=== PATIENT | male | born 1985 | race Two or more races ===

== ENCOUNTER 2019-04-16 07:12 | Emergency (ER) | payer SELFPAY ==
[~2019-04-16] VITALS: Ht 165.1 cm; Wt 65.3 kg
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
--- NOTE | 2019-04-16 07:32 | NUR ---
1:1 SITTER AT BEDSIDE.
--- NOTE | 2019-04-16 07:35 | NUR ---
SECURITY CALLED FOR WANDING. ALL BELONGINGS TO SAFE LOCKER.
[2019-04-16 07:54] LABS: APPEARANCE,URINE Slightly Cloudy (CLEAR); BILIRUBIN,URINE SMALL (NEGATIVE); BLOOD, URINE Negative Ery/uL (NEGATIVE); COLOR,URINE Dark (YELLOW); KETONES,URINE Trace (NEGATIVE); LEUKOCYTE ESTERASE ,URINE Negative (NEGATIVE); NITRITE, URINE Negative (NEGATIVE); PH,URINE 5.5 (5.0-8.0); PROTEIN,URINE 30 mg/dl (NEGATIVE); UGLUCOSE Negative (NEGATIVE); UROBILINOGEN,URINE 0.2 EU/dL (0.2)
[2019-04-16 08:10] LABS: BACTERIA,URINE Few /HPF (None Seen); RBC,URINE 0-2 /HPF (0-2); SQUAMOUS EPITHELIAL CELL,UR Rare /HPF (None Seen)
[2019-04-16 08:10] LABS: BASOPHILS # (AUTO) 0.2 /CMM (0.0-0.2); BASOPHILS % (AUTO) 3.1 % (0.0-2.0); EOSINOPHILS % (AUTO) 3.4 % (0.0-6.0); HEMATOCRIT 43 % (39-51); HEMOGLOBIN 14.7 g/dL (13.5-17.5); LYMPHOCYTES % (AUTO) 16.9 % (20.0-44.0); MEAN CORPUSCULAR HGB CONC 34 g/dl (31.0-36.0); MEAN CORPUSCULAR VOLUME 91 fL (80-96); MONOCYTES # (AUTO) 0.7 /CMM (0.1-1.30); MONOCYTES % (AUTO) 12.2 % (2.0-12.0); NEUTROPHILS # (AUTO) 3.7 /CMM (1.8-8.9); NEUTROPHILS % (AUTO) 64.4 % (43.0-81.0); PLATELET COUNT (AUTO) 353 /CMM (150-450); RED BLOOD CELL COUNT(AUTO) 4.72 MIL/uL (4.5-6.0); WHITE BLOOD COUNT (AUTO) 5.7 K/uL (4.3-11.0)
[2019-04-16 08:23] LABS: ALANINE AMINOTRANSFERASE 27 U/L (12-78); ALBUMIN 3.9 g/dL (3.4-5.0); ALCOHOL, BLOOD < 3 mg/dL (0-0); ALKALINE PHOSPHATASE 94 U/L (46-116); ASPARTATE AMINOTRANSFERASE 20 U/L (15-37); BILIRUBIN,DIRECT 0.1 mg/dL (0.0-0.2); BILIRUBIN,TOTAL 0.7 mg/dL (0.2-1.0); CALCIUM, SERUM 9.1 mg/dL (8.5-10.1); CARBON DIOXIDE 28 mmol/L (21-32); CHLORIDE 104 mmol/L (98-107); CREATININE 1.1 mg/dL (0.6-1.3); GLUCOSE 115 mg/dL (74-106); POTASSIUM 4.2 mmol/L (3.5-5.1); SALICYLATE 1.5 mg/dL (2.8-20.0); SODIUM SERUM 143 mmol/L (136-145); TOTAL PROTEIN, SERUM 7.5 g/dL (6.4-8.2); UREA NITROGEN, BLOOD 19 mg/dL (7-18)
[2019-04-16 08:24] LABS: ACETAMINOPHEN < 2 ug/ml (10-30)
--- NOTE | 2019-04-16 08:47 | NUR ---
YULIANA PERES CALLED FOR EVAL
--- NOTE | 2019-04-16 10:37 | NUR ---
Pt was evaluated by film sound coordinator Letha Smith and is psychiatrically cleared for discharge. [address] VENDOR met with the pt and provided him with a homeless packet which contains [facility] [phone] [place] [facility] program list, [facility] located at [address] [facility] ; [facility] [place], [address] [address] [place] ; [facility] [place], [address] [facility] ; [facility] Homeless Resource Directory which includes food stamps, transitional housing, showers and hot meals etc; Mental Health clinics such as [facility] ; [facility] ; Health clinics;[facility] and Alcohol treatment centers such as [facility], ; [facility] Substance Abuse Hotline and [facility] . Homeless waiver signed by the pt. Pt was provided with a warm meal and TAP card. No other social service needs are requested at this time. MARYLOU Magaña has been made aware of pt's discharge plan.
--- NOTE | 2019-04-16 10:38 | NUR ---
PT IS MEDICALLY AND PSYCH CLEARED. DENIES SI AT THIS TIME. HOMELESS WAIVER FORMED IS SIGNED. WAS PROVIDED W/ MEAL TRAY. RESOURCES PROVIDED. D/C IN STABLE CONDITION.
[2019-04-16 10:41] VITALS: BP 132/99
== END 2019-04-16 10:41 | disposition home or self-care (01) ==
LOC: ER 07:15
DX: R45.851 Suicidal ideations (principal); F15.10 Other stimulant abuse, uncomplicated; I10 Essential (primary) hypertension; F32.9 Major depressive disorder, single episode, unspecified
CPT/HCPCS: 36415; 80048; 80076; 80305; 80307; 80329; 81001; 85025; 99284; A6403; G0480; 81000-TC

== ENCOUNTER 2019-04-26 18:07 | Emergency (ER) | payer SELFPAY ==
[~2019-04-26] VITALS: Ht 165.1 cm; Wt 64.4 kg
--- NOTE | 2019-04-26 18:10 | NUR ---
PT BIB [facility] [place] [employer] [employer]. PT WAS TRIAGED AND TAKEN TO ER 13. PT'S BELONGINGS WERE REMOVED, LABELED, AND PLACED IN A LOCKER. PT IS CALM AND COOPERATIVE. PT STATED THAT HE WAS SI S/P USING METH. PT WAS GOING TO ATTEMPT JUMPING OFF A BRIDGE. PT DENIES SI AT THIS TIME. URINE SAMPLE WAS OBTAINED AND SENT TO LAB.
--- NOTE | 2019-04-26 18:20 | NUR ---
PT PLACED IN GOWN AND PROVIDING URINE SAMPLE. PT BELONGINGS PLACED IN LOCKER.
--- NOTE | 2019-04-26 18:30 | NUR ---
PT REC'D A SANDWICH AND GATERAIDE DRINK. PT IS TOLERATING PO WELL. MARYLU COLE CNA, IS AT THE BEDSIDE.
[2019-04-26 18:47] LABS: CALCIUM, SERUM 9.2 mg/dL (8.5-10.1); CARBON DIOXIDE 29 mmol/L (21-32); CHLORIDE 101 mmol/L (98-107); GLUCOSE 113 mg/dL (74-106); POTASSIUM 3.6 mmol/L (3.5-5.1); SODIUM SERUM 138 mmol/L (136-145); UREA NITROGEN, BLOOD 23 mg/dL (7-18)
[2019-04-26] MEDS ORDERED: OLANZAPINE 5 MG TABLET ONE (18:50)
[2019-04-26 18:54] LABS: ALANINE AMINOTRANSFERASE 31 U/L (12-78); ALBUMIN 4.3 g/dL (3.4-5.0); ALCOHOL, BLOOD < 3 mg/dL (0-0); ALKALINE PHOSPHATASE 90 U/L (46-116); ASPARTATE AMINOTRANSFERASE 25 U/L (15-37); BILIRUBIN,DIRECT 0.4 mg/dL (0.0-0.2); BILIRUBIN,TOTAL 1.9 mg/dL (0.2-1.0); TOTAL PROTEIN, SERUM 7.9 g/dL (6.4-8.2)
[2019-04-26 18:56] LABS: SALICYLATE < 2.8 mg/dL (2.8-20.0)
--- NOTE | 2019-04-26 18:59 | NUR ---
PT WAS STILL HUNGRY. PT REC'D A FOOD TRAY.
[2019-04-26] MEDS ORDERED: OLANZAPINE 5 MG TABLET PO ONE (19:00)
[2019-04-26 19:07] LABS: BILIRUBIN,URINE MODERATE (NEGATIVE); BLOOD, URINE Negative Ery/uL (NEGATIVE); COLOR,URINE Yellow (YELLOW); KETONES,URINE 15 (NEGATIVE); LEUKOCYTE ESTERASE ,URINE Negative (NEGATIVE); NITRITE, URINE Negative (NEGATIVE); PH,URINE 5.5 (5.0-8.0); PROTEIN,URINE Trace mg/dl (NEGATIVE); UGLUCOSE Negative (NEGATIVE)
[2019-04-26 19:11] LABS: BASOPHILS # (AUTO) 0.2 /CMM (0.0-0.2); BASOPHILS % (AUTO) 1.8 % (0.0-2.0); EOSINOPHILS % (AUTO) 1.1 % (0.0-6.0); HEMATOCRIT 43 % (39-51); HEMOGLOBIN 14.8 g/dL (13.5-17.5); LYMPHOCYTES # (AUTO) 1.3 /CMM (0.8-4.8); LYMPHOCYTES % (AUTO) 14.3 % (20.0-44.0); MEAN CORPUSCULAR HGB CONC 34 g/dl (31.0-36.0); MEAN CORPUSCULAR VOLUME 91 fL (80-96); MONOCYTES # (AUTO) 0.8 /CMM (0.1-1.30); MONOCYTES % (AUTO) 9.1 % (2.0-12.0); NEUTROPHILS # (AUTO) 6.4 /CMM (1.8-8.9); NEUTROPHILS % (AUTO) 73.7 % (43.0-81.0); PLATELET COUNT (AUTO) 302 /CMM (150-450); RED BLOOD CELL COUNT(AUTO) 4.76 MIL/uL (4.5-6.0); WHITE BLOOD COUNT (AUTO) 8.7 K/uL (4.3-11.0)
--- NOTE | 2019-04-26 19:14 | NUR ---
PT APPEARS TO BE RESTING COMFORTABLY.
--- NOTE | 2019-04-26 19:16 | NUR ---
SATISH, DAIRY TECHNOLOGIST IS AT THE BEDSIDE FOR BLOOD DRAW.
[2019-04-26 19:22] LABS: APPEARANCE,URINE SLIGHTLY HAZY (CLEAR); BACTERIA,URINE Rare /HPF (None Seen); CALCIUM OXALATE CRYSTALS,UR Moderate /HPF (None Seen); MUCUS,URINE Few /LPF (None Seen); RBC,URINE 0-2 /HPF (0-2); SQUAMOUS EPITHELIAL CELL,UR Few /HPF (None Seen)
--- NOTE | 2019-04-26 20:26 | NUR ---
PT APPEARS TO BE RESTING COMFORTABLY. REPEAT EKG IN PROGRESS AT THE BEDSIDE.
--- NOTE | 2019-04-26 20:35 | NUR ---
PT AMBULATED TO THE BATHROOM WITH A STEADY GAIT. SITTER IS WITH THE PT.
--- NOTE | 2019-04-26 21:26 | NUR ---
PT REC'D ANOTHER SANDWICH AND IS TOLERATING PO WELL.
--- NOTE | 2019-04-26 21:48 | NUR ---
Carlos shelley in [facility] - 04/26/19 at 2152 by [email or web address] PT TRIED TO GIVE A URINE SAMPLE, BUT DID NOT HAVE TO URINATE AT THIS TIME.
--- NOTE | 2019-04-26 21:50 | NUR ---
PT APPEARS TO BE SLEEPING SOUNDLY. VSS. SITTER IS AT THE BEDSIDE.
--- NOTE | 2019-04-26 22:15 | NUR ---
PT APPEARS TO BE SLEEPING COMFORTABLY WITH NO S/S OF PAIN OR DISTRESS.
--- NOTE | 2019-04-27 00:38 | NUR ---
PT APPEARS TO BE SLEEPING SOUNDLY WITH SITTER AT THE BEDSIDE. WILL CONTINUE TO MONITOR THE PT.
--- NOTE | 2019-04-27 01:47 | NUR ---
PT REC'D A SANDWICH AND JUICE. PT IS TOLERATING PO WELL.
--- NOTE | 2019-04-27 01:49 | NUR ---
PT DENIES SI AT THIS TIME.
--- NOTE | 2019-04-27 02:48 | NUR ---
PT APPEARS TO BE SLEEPING SOUNDLY WITH NO S/S OF PAIN OR DISTRESS. SITTER IS AT THE BEDSIDE. WILL CONTINUE TO MONITOR THE PT.
--- NOTE | 2019-04-27 05:29 | NUR ---
Patient discharged to home in stable condition. Written and verbal after care instructions given. Patient verbalizes understanding of instruction. Pt ambulated with steady gait. VSS. Pt signed homeless waiver.
[2019-04-27 05:31] VITALS: BP 112/75
== END 2019-04-27 05:31 | disposition home or self-care (01) ==
LOC: ER 18:07
DX: F15.10 Other stimulant abuse, uncomplicated (principal); F12.10 Cannabis abuse, uncomplicated; R94.5 Abnormal results of liver function studies; I10 Essential (primary) hypertension; F90.9 Attention-deficit hyperactivity disorder, unspecified type; F43.10 Post-traumatic stress disorder, unspecified
CPT/HCPCS: 36415; 80048; 80076; 80305; 80307; 80329; 81001; 84484; 85025; 93005 ×2; 99284; G0480; 81000-TC

== ENCOUNTER 2019-05-04 10:52 | Emergency (ER) | payer MEDICAID ==
[~2019-05-04] VITALS: Ht 165.1 cm; Wt 65.8 kg
--- NOTE | 2019-05-04 10:59 | NUR ---
[id number], homeless, patient took heroin this morning, 1 spray narcan given by ems. On room air, breathing evenly and unlabored. connected to the monitor and pulse ox. kept comfortable will conitnue to monitor accordingly.
[2019-05-04 11:30] VITALS: BP 145/81
--- NOTE | 2019-05-04 11:33 | NUR ---
Patient given written and verbal discharge instructions. Patient verbalizes understanding of instructions. Patient is ambulatory with steady gait. Refuses offer of alf placement. Patient given list of available shelters in surrounding area. food and tap card provided. in no distress, denies any pain or discomfort.
== END 2019-05-04 11:33 | disposition home or self-care (01) ==
LOC: ER 10:52
DX: T40.1X1A Poisoning by heroin, accidental (unintentional), initial encounter (principal); I10 Essential (primary) hypertension; Z59.0 Homelessness; Y92.89 Other specified places as the place of occurrence of the external cause

== ENCOUNTER 2019-08-02 06:31 | Emergency (ER) | payer SELFPAY ==
[~2019-08-02] VITALS: Ht 165.1 cm; Wt 63.5 kg
[2019-08-02] MEDS ORDERED: ONDANSETRON 4 MG TAB.RAPDIS PO ONE (07:00)
[2019-08-02] MEDS ORDERED: oxyCODONE/APAP (5/325 MG) 1 UDTAB TABLET PO ONE (07:00)
--- NOTE | 2019-08-02 07:00 | NUR ---
ASSESSED PT ON BED AWAKE AND AAOX4. NOT IN RESPIRATORY DISTRESS,V/S STABLE. KEPT RESTED AND COMFORTABLE. WILL CONTINUE TO MONITOR.
[2019-08-02] MEDS ORDERED: oxyCODONE/APAP (5/325 MG) 1 UDTAB TABLET ONE (07:08)
[2019-08-02] MEDS ORDERED: ONDANSETRON 4 MG TAB.RAPDIS ONE (07:08)
--- NOTE | 2019-08-02 07:56 | NUR ---
TO ER WR TO WAIT FOR DINKEY MOTOR OPERATOR
--- NOTE | 2019-08-02 08:10 | NUR ---
YULIANA DUBOSE AT WAITING FOR PT RESOURCES
--- NOTE | 2019-08-02 08:18 | NUR ---
BEAN VINER was informed by Ruben in ED stating, pt is waiting for SW in the ED waiting room. BEAN VINER met with the pt in ED waiting room. BEAN VINER introduced self and purpose of the visit. Pt is alert and oriented x 4. Pt appears disheveled and unkempt. Pt is requesting for resources and a sandwich and blanket. Pt is a heroin user. Pt last used a few days ago. Pt denies SI/HI. BEAN VINER provided pt with list of Homeless Resources Related to COVID-19 which included mental health clinics, addiction resources, food coyne, hygiene etc. Pt was provide with a sandwich and blanket. No other social service needs are requested at this time. Agronomy Professor is available for support as needed.
[2019-08-02 08:19] VITALS: BP 120/74
== END 2019-08-02 08:20 | disposition home or self-care (01) ==
LOC: ER 06:34
DX: F11.10 Opioid abuse, uncomplicated (principal); R11.2 Nausea with vomiting, unspecified; I10 Essential (primary) hypertension; F43.10 Post-traumatic stress disorder, unspecified; Z59.0 Homelessness
CPT/HCPCS: 99283; Q0162

== ENCOUNTER 2019-08-02 17:45 | Emergency (ER) | payer SELFPAY ==
[~2019-08-02] VITALS: Ht 165.1 cm; Wt 63.5 kg
[2019-08-02] MEDS ORDERED: IV NS 0.9% 1,000 ML BAG IV ONE (18:30)
[2019-08-02] MEDS ORDERED: ONDANSETRON HCL/PF 4 MG/2 ML VIAL IVP ONE (18:30)
[2019-08-02] MEDS ORDERED: ACETAMINOPHEN 325 MG TABLET PO ONE (18:30)
[2019-08-02] MEDS ORDERED: ACETAMINOPHEN ES 500 MG TABLET ONE (18:41)
[2019-08-02] MEDS ORDERED: ONDANSETRON HCL/PF 4 MG/2 ML VIAL ONE (18:41)
--- NOTE | 2019-08-02 19:25 | NUR ---
to er bed 12. aaox4. not in resp distress. ambulatory. came in for abdominal pain x today also reports nausea. reports using heroin about hours ago. md was at bedside for eval. orders received noted and carried out. iv line to the l ac 18g. medicated as ordered
--- NOTE | 2019-08-02 20:03 | NUR ---
Patient discharged to home in stable condition. Written and verbal after care instructions given. Patient verbalizes understanding of instruction.IV removed. Catheter intact and site benign. Pressure and 4x4 applied to site. No bleeding noted. Pt ambulatory with a steady gait. Pt provided with food. Pt signed homeless waiver
[2019-08-02 20:14] VITALS: BP 137/86
== END 2019-08-02 20:14 | disposition home or self-care (01) ==
LOC: ER 17:48
DX: F11.10 Opioid abuse, uncomplicated (principal); R11.0 Nausea; I10 Essential (primary) hypertension; F43.10 Post-traumatic stress disorder, unspecified; Z60.2 Problems related to living alone
CPT/HCPCS: 96374; 99283; J2405; J7030

== ENCOUNTER 2019-09-09 20:17 | Inpatient (IN) | payer MEDICAID ==
[~2019-09-09] VITALS: Ht 165.1 cm; Wt 71.7 kg
[2019-09-09] MEDS ORDERED: PIPERACILLIN /TAZOBACTAM 3.375 G in IV D5W 50 ML IV ONE (21:00)
[2019-09-09] MEDS ORDERED: VANCOMYCIN 1 GM in IV D5W 250 ML IV ONE (21:00)
[2019-09-09] MEDS ORDERED: TDAP [DIPH/PERTUSSIS/TET] 0.5 ML VIAL IM ONE ×2 (21:00→22:46)
[2019-09-09] MEDS ORDERED: IV NS 0.9% 1,000 ML BAG IV ONE (21:00)
--- NOTE | 2019-09-09 21:10 | NUR ---
BIBS FROM STREET TO ER BED 12. AAOX4. NOT IN RESP DISTRESS, BREATHING EVEN AND UNLABORED. AMBULATORY. CAME IN FOR BILAT LEG REDNESS, SWELLING, OPEN WOUNDS AND MULTIPLE ABSCESS. PT VERBALIZED THE HE STRATED TO NOTICE IT COUPLE DAYS BEFORE. PT REPORTS THAT HE IS AN IV DRUG USER AND USES HIS LEGS FOR IV ACCESS. PT IS AFEBRILE. SHAMA MARTINEZ WAS AT THE BEDSIDE FOR EVAL. ORDERS RECEIVED NOTED AND CARRIED OUT.
[2019-09-09 21:18] LABS: BASOPHILS # (AUTO) 0.1 /CMM (0.0-0.2); BASOPHILS % (AUTO) 1.3 % (0.0-2.0); HEMATOCRIT 36 % (39-51); HEMOGLOBIN 12.1 g/dL (13.5-17.5); LYMPHOCYTES # (AUTO) 0.8 /CMM (0.8-4.8); LYMPHOCYTES % (AUTO) 8.3 % (20.0-44.0); MEAN CORPUSCULAR HGB CONC 34 g/dl (31.0-36.0); MEAN CORPUSCULAR VOLUME 88 fL (80-96); MONOCYTES # (AUTO) 0.8 /CMM (0.1-1.30); MONOCYTES % (AUTO) 7.5 % (2.0-12.0); NEUTROPHILS # (AUTO) 8.3 /CMM (1.8-8.9); NEUTROPHILS % (AUTO) 81.9 % (43.0-81.0); PLATELET COUNT (AUTO) 386 /CMM (150-450); RED BLOOD CELL COUNT(AUTO) 4.04 MIL/uL (4.5-6.0); WHITE BLOOD COUNT (AUTO) 10.2 K/uL (4.3-11.0)
[2019-09-09 21:31] LABS: CALCIUM, SERUM 9.6 mg/dL (8.5-10.1); CARBON DIOXIDE 29 mmol/L (21-32); CHLORIDE 99 mmol/L (98-107); CREATININE 0.8 mg/dL (0.6-1.3); GLUCOSE 101 mg/dL (74-106); POTASSIUM 3.5 mmol/L (3.5-5.1); SODIUM SERUM 135 mmol/L (136-145); UREA NITROGEN, BLOOD 12 mg/dL (7-18)
[2019-09-09] MEDS ORDERED: PIPERACILLIN /TAZOBACTAM 3.375 G VIAL IV ONE (21:32)
[2019-09-09] MEDS ORDERED: VANCOMYCIN 1 GM VIAL ONE (21:32)
[2019-09-09 21:37] LABS: ALANINE AMINOTRANSFERASE 45 U/L (12-78); ALBUMIN 3.4 g/dL (3.4-5.0); ALKALINE PHOSPHATASE 82 U/L (46-116); ASPARTATE AMINOTRANSFERASE 34 U/L (15-37); BILIRUBIN,DIRECT 0.1 mg/dL (0.0-0.2); BILIRUBIN,TOTAL 0.3 mg/dL (0.2-1.0); TOTAL PROTEIN, SERUM 8.1 g/dL (6.4-8.2)
--- NOTE | 2019-09-09 21:45 | NUR ---
PT PROVIDED WITH FOOD AND DRINK
--- NOTE | 2019-09-09 21:45 | NUR ---
XRAY DINE AT BEDSIDE
[2019-09-09] MEDS ORDERED: LIDOCAINE 1%-EPI 1:100,000 20 ML VIAL ONE (21:57)
--- NOTE | 2019-09-09 22:02 | NUR ---
SHAMA MARTINEZ T BEDSIDE FOR I&D
--- NOTE | 2019-09-09 23:24 | NUR ---
COVID NEGATIVE PER LAB
--- NOTE | 2019-09-09 23:33 | NUR ---
BED ASSIGNMENT 208-1
--- NOTE | 2019-09-09 23:39 | NUR ---
REPORT GIVEN TO MARYLOU VASQUEZ FOR JUAN
--- NOTE | 2019-09-09 23:50 | NUR ---
pt trasnported to unit on [facility] with emt at bedside. pt is in stable condition for transport.
[2019-09-10 00:05] VITALS: BP 151/95
[2019-09-10 00:15] VITALS: BP 151/95
[2019-09-10] MEDS ORDERED: MORPHINE SULFATE INJ 2 MG/ML DISP.SYRIN IV PRN (02:00)
[2019-09-10] MEDS ORDERED: ZOLPIDEM TARTRATE 5 MG TABLET PO PRN (02:00)
[2019-09-10] MEDS ORDERED: Z GUARD REMEDY 2 OZ OINT TP PRN (02:00)
[2019-09-10] MEDS ORDERED: ONDANSETRON HCL/PF 4 MG/2 ML VIAL IVP PRN (02:00)
[2019-09-10] MEDS ORDERED: CLONIDINE HCL 0.1 MG TABLET PO SCH (02:00)
[2019-09-10] MEDS ORDERED: ACETAMINOPHEN 325 MG TABLET PO PRN (02:00)
[2019-09-10] MEDS: IV NS 0.9% 1,000 ML IV PRN ×2 (03:08→21:20)
[2019-09-10] MEDS: ENOXAPARIN SODIUM 40 MG/0.4 ML DISP.SYRIN SQ SCH (03:09)
--- NOTE | 2019-09-10 06:32 | NUR ---
MS RN RECEIVE PT FROM [facility] 09/10/2019 AT 0005 VIA W/C PT A/O X 4 COMPLIANT WITH CARE, HEAD TO TOE ASSESSMENT IS DONE, EXCEPT PT REFUSED SKIN CHECK AROUND GROIN AREA PER PT I HAVE NO WOUNDS THERE DESPITE EXPLAINING RISKS AND BENEFITS [facility] AD[facility]ITTING CL[facility] WITH ME, PT WANTED TO DO HIS WOUND CULTURE WITH G/S LATER PT VERBALIZED"PLEASE DO IT LATER". PT ASLEEP AND DOESNT WANT TO BE BOTHER AT THIS TIME WILL ENDORSE NO S/S OF DISTRESS, MONITORED FOR PAIN, MORPHINE PER PT REQUEST EFFECTIVE, PT CALM WITH NO COMPLAINS OF PAIN, TOLERATING ROOM AIR NO SOB, GOOD SKIN CARE AT ALL TIMES. KEPT CLEAN, DRY AND COMFORTABLE, NEEDS ATTENDED AND ANTICIPATED, SAFETY MEASURES AT ALL TIMES,. WILL ENDORSE TO NEXT SHIFT.
[2019-09-10 08:00] VITALS: BP 126/82
--- NOTE | 2019-09-10 08:00 | NUR ---
MS RN OPENING NOTES Received Patient resting in bed. A/O x 4. VS stable with no acute distress. Breathing even and unlabored on room air with no respiratory distress. Patient stated tolerable pain level on left lower leg. Will continue to monitor and intervene as ordered. 20g PIV on RAC clean, intact, patent and flushing well with NS infusing at 75ml/hr. Safety precautions in place. Bed locked and set to lowest position with side rails x 2 up. All needs rendered at this time. Call light within reach. Will continue to monitor.
--- NOTE | 2019-09-10 08:10 | NUR ---
WOUND CARE CONSULT: PT PRESENTS WITH MULTIPLE AREAS OF DISCOLORATION, SCRATCHES, SCABS ON BODY AND LEFT LOWER LEG WOUND, S/P I&D IN E.R., PRESENT ON ADMISSION. PT REFUSED ASSESSMENT OF GROIN, BUTTOCKS AREA. RECOMMENDATIONS MADE FOR WOUND CARE. DISCUSSED WITH NURSING STAFF. PT IS CONTINENT AND INDEPENDENT WITH BED MOBILITY. DEFER TO PMD FOR POSSIBLE SURGICAL CONSULT. MD IN AGREEMENT WITH PLAN OF CARE. Addendum: 09/10/19 at 0812 by MELIDA BARROWU PT REFUSED PACKING OF WOUND AT THIS TIME. WOUND CLEANSED WITH NS, PATTED DRY AND GAUZE, KERLIX APPLIED. PT TOLERATED WELL.
[2019-09-10] MEDS ORDERED: FEE PK DOSING 1 MIN EA MC ONE (08:30)
[2019-09-10] MEDS: GABAPENTIN 300 MG CAPSULE PO SCH ×3 (09:05→17:10)
[2019-09-10] MEDS: VANCOMYCIN 1.25 GM in IV D5W 250 ML IV SCH ×2 (09:05→17:10)
[2019-09-10] MEDS: CLONIDINE HCL 0.1 MG TABLET PO SCH ×2 (12:55→20:35)
[2019-09-10 16:00] VITALS: BP 124/79
--- NOTE | 2019-09-10 19:55 | NUR ---
MS RN OPENING NOTES PATIENT RECEIVED RESTING IN BED COMFORTABLY; A/OX4, ABLE TO MAKE NEEDS KNOWN; PATIENT TOLERATING ROOM AIR WELL; BREATHING EVEN AND UNLABORED; NO SOB NOTED; NO DISTRESS NOTED; R AC #20 INFUSING NS 75ML/HR, TOLERATING INFUSION WELL; NO REDNESS OR INFILTRATION NOTED; PER AM SHIFT, PATIENT IS ABLE TO AMBULATE SELF TO RESTROOM IF NEEDED; PATIENT AWARE TO USE CALL LIGHT; SAFETY PRECAUTIONS IMPLEMENTED; BED LOCKED IN LOW POSITION; SIDE RAILSX2; CALL LIGHT WITHIN REACH; WILL CONT TO MONITOR
--- NOTE | 2019-09-10 19:55 | NUR ---
MS RN CLOSING NOTES Patient resting in bed. A/O x 4. VS stable with no acute distress. Breathing even and unlabored on room air with no respiratory distress. Patient stated tolerable pain level on left lower leg. Left lower leg wound dressing C/D/I. Will endorse to oncoming shift. 20g PIV on RAC clean, intact, patent and flushing well with NS infusing at 75ml/hr. Safety precautions in place. Bed locked and set to lowest position with side rails x 2 up. All needs rendered at this time. Call light within reach. Will endorse plan of care to oncoming shift.
[2019-09-10 20:00] VITALS: BP 123/70
[2019-09-10 20:33] VITALS: BP 123/70
--- NOTE | 2019-09-10 20:36 | NUR ---
MS RN NOTES R AC #20 CAME OUT ACCIDENTALLY, PER PATIENT WHEN MOVING IN BED; IV TIP INTACT, NO S/S OF REDNESS OR INFILTRATION; NO BLEEDING NOTED; WILL ATTEMPT FOR IV ACCESS
--- NOTE | 2019-09-10 20:57 | NUR ---
MS RN NOTES IV ACCESS OBTAINED, R FA #22, FLUSHING WELL; WILL CONT TO MONITOR
[2019-09-11] MEDS: VANCOMYCIN 1.25 GM in IV D5W 250 ML IV SCH ×2 (01:01→10:11)
[2019-09-11] MEDS: ENOXAPARIN SODIUM 40 MG/0.4 ML DISP.SYRIN SQ SCH (01:02)
--- NOTE | 2019-09-11 02:46 | NUR ---
MS RN NOTES PATIENT CURRENTLY REFUSING WOUND TREATMENT; PATIENT ONLY WANTED BED TO BE CHANGED; PATIENT DID NOT WANT TO BE BOTHERED AND JUST WANTED TO GO TO SLEEP; PATIENT EDUCATED ON RISKS/BENEFITS OF REFUSING WOUND TREATMENT; PATIENT AWARE, STILL REFUSING; PATIENT WILL WAIT FOR MORNING; WILL CONT TO MONITOR
[2019-09-11] MEDS: CLONIDINE HCL 0.1 MG TABLET PO SCH ×3 (04:05→22:01)
--- NOTE | 2019-09-11 06:40 | NUR ---
MS RN CLOSING NOTES PATIENT RESTING IN BED COMFORTABLY; A/OX4; BREATHING EVEN AND UNLABORED; NO SOB NOTED; PATIENT TOLERATING ROOM AIR WELL; PATIENT ABLE TO MAKE NEEDS KNOWN; R FA # 22 INTACT AND PATENT; FLUSHING WELL; TOLERATING IVF WELL; NO S/S OF REDNESS OR INFILTRATION NOTED; WOUND CULTURE SAMPLE COLLECTED 09/10/19 @ 0800 AND WAS KEPT IN FRIDGE; NO ONE PICKED UP SAMPLE; HANDED SAMPLE TO TRANSPORT CONDUCTOR; ALL NEEDS RENDERED; SAFETY PRECAUTIONS IMPLEMENTED; BED LOCKED IN LOW POSITION; SIDE RAILSX2; CALL LIGHT WITHIN REACH; WILL ENDORSE JUAN TO ONCOMING SHIFT
--- NOTE | 2019-09-11 07:30 | NUR ---
MS RN NOTES PATIENT RECEIVED IN BED RESTING COMFORTABLY. ALERT AND ORIENTED X 4. ON ROOM AIR WITH NO SIGNS OF RESPIRATORY DISTRESS PRESENT AT THIS TIME, WITH EVEN NON-LABORED BREATHING, AND NO SOB NOTED. PATIENT IV ACCESS INTACT AND PATENT ON RIGHT FOREARM, INFUSING NORMAL SALINE AT 75ml/hr. SAFETY PRECAUTIONS IMPLEMENTED BED LOCKED, BED IN THE LOWEST POSITION, BILATERAL SIDE RAILS UP, AND CALL LIGHT WITHIN EASY REACH OF PATIENT. WILL CONTINUE TO MONITOR PATIENT.
[2019-09-11 08:00] VITALS: BP 120/75
[2019-09-11 08:04] LABS: BASOPHILS # (AUTO) 0.2 /CMM (0.0-0.2); BASOPHILS % (AUTO) 3.1 % (0.0-2.0); EOSINOPHILS % (AUTO) 4.2 % (0.0-6.0); HEMATOCRIT 36 % (39-51); HEMOGLOBIN 11.8 g/dL (13.5-17.5); LYMPHOCYTES # (AUTO) 1.2 /CMM (0.8-4.8); MEAN CORPUSCULAR HGB CONC 33 g/dl (31.0-36.0); MEAN CORPUSCULAR VOLUME 87 fL (80-96); MONOCYTES # (AUTO) 0.9 /CMM (0.1-1.30); MONOCYTES % (AUTO) 13.2 % (2.0-12.0); NEUTROPHILS # (AUTO) 4.3 /CMM (1.8-8.9); NEUTROPHILS % (AUTO) 62.5 % (43.0-81.0); PLATELET COUNT (AUTO) 380 /CMM (150-450); RED BLOOD CELL COUNT(AUTO) 4.06 MIL/uL (4.5-6.0); WHITE BLOOD COUNT (AUTO) 6.9 K/uL (4.3-11.0)
--- NOTE | 2019-09-11 08:50 | NUR ---
MS RN NOTES CALLED LAB FOR VANCO TROUGH, SCHEDULE AT 0800. WILL FOLLOW UP VANCO TR[facility] LAB RESULTS. WILL CONTINUE TO MONITOR PATIENT.
[2019-09-11] MEDS: GABAPENTIN 300 MG CAPSULE PO SCH ×3 (09:00→17:06)
[2019-09-11 09:03] LABS: CALCIUM, SERUM 9.2 mg/dL (8.5-10.1); CREATININE 0.7 mg/dL (0.6-1.3); MAGNESIUM 2.2 mg/dL (1.8-2.4); PHOSPHORUS 3.1 mg/dL (2.5-4.9); POTASSIUM 4.4 mmol/L (3.5-5.1)
[2019-09-11] MEDS: IV NS 0.9% 1,000 ML IV PRN (15:15)
[2019-09-11 16:00] VITALS: BP 122/84
[2019-09-11] MEDS: VANCOMYCIN 1 GM in IV D5W 250 ML IV SCH (17:06)
--- NOTE | 2019-09-11 19:01 | NUR ---
MS RN NOTES PATIENT IN BED RESTING COMFORTABLY, ON ROOM AIR WITH NO SIGNS OF RESPIRATORY DISTRESS PRESENT AT THIS TIME, WITH EVEN NON-LABORED BREATHING, AND NO SOB NOTED. PATIENT SKIN KEPT CLEAN AND DRY. WOUND CARE TREATMENT DONE AND DRESSING INTACT. PATIENT IV ACCESS INFILTRATED AT 1800, ATTEMPTED TO INSERT IV ACCESS, WHEN INSERTED IV ACCESS ON LEFT HAND PATIENT INSISTED TO REMOVE THE IV ACCESS, MADE PATIENT AWARE OF NEED OF IV ACCESS TO INFUSE ANTIBIOTICS AND EDUCATED PATIENT. PROVIDED COMFORT MEASURES TO PATIENT AND MET ALL OF PATIENT'S NEEDS. SAFETY PRECAUTIONS IMPLEMENTED WITH BED LOCKED, BILATERAL SIDE RAILS UP, BED IN THE LOWEST POSITION, AND CALL LIGHT WITHIN EASY REACH OF THE PATIENT. WILL ENDORSE PLAN OF CARE TO UPCOMING NIGHTSHIFT NURSE.
--- NOTE | 2019-09-11 19:15 | NUR ---
rn ms opening notes received patient in bed awake alert and oriented x4, respirations even and unlabored with equal rise and fall of chest, denies any pain or discomfort at this time, iv site inserted to right upper arm #22 g intact and patent, left leg with intact dressing, safety precautions rendered, low bed and locked, oriented to staff and call light and kept within reach, at this time remains comfortable, all needs attended will continue to monitor.
--- NOTE | 2019-09-11 19:15 | NUR ---
rn ms notes inserted iv to right fa #22g , patient agreed to have iv abx infused at this time, scheduled vancomycin infusing.
[2019-09-11 20:24] VITALS: BP 117/78
[2019-09-12] MEDS: VANCOMYCIN 1 GM in IV D5W 250 ML IV SCH ×2 (01:24→08:47)
[2019-09-12] MEDS: ENOXAPARIN SODIUM 40 MG/0.4 ML DISP.SYRIN SQ SCH (02:13)
[2019-09-12] MEDS: CLONIDINE HCL 0.1 MG TABLET PO SCH ×2 (05:40→13:00)
--- NOTE | 2019-09-12 07:00 | NUR ---
rn ms closing notes patient in bed awake alert and oriented x4, respirations even and unlabored with equal rise and fall of chest, denies any pain or discomfort at this time, iv site inserted to right fa #22 g intact and patent, left leg with intact dressing, safety precautions rendered, low bed and locked, d call light kept within reach, at this time remains comfortable, all needs attended will continue to monitor and endorse to next shift.
[2019-09-12 08:00] VITALS: BP 111/70
[2019-09-12 08:00] LABS: BASOPHILS # (AUTO) 0.2 /CMM (0.0-0.2); BASOPHILS % (AUTO) 3.1 % (0.0-2.0); EOSINOPHILS % (AUTO) 4.5 % (0.0-6.0); HEMATOCRIT 39 % (39-51); HEMOGLOBIN 12.7 g/dL (13.5-17.5); LYMPHOCYTES # (AUTO) 1.4 /CMM (0.8-4.8); LYMPHOCYTES % (AUTO) 22.6 % (20.0-44.0); MEAN CORPUSCULAR HGB CONC 33 g/dl (31.0-36.0); MEAN CORPUSCULAR VOLUME 88 fL (80-96); MONOCYTES # (AUTO) 0.6 /CMM (0.1-1.30); MONOCYTES % (AUTO) 9.7 % (2.0-12.0); NEUTROPHILS # (AUTO) 3.7 /CMM (1.8-8.9); NEUTROPHILS % (AUTO) 60.1 % (43.0-81.0); PLATELET COUNT (AUTO) 411 /CMM (150-450); RED BLOOD CELL COUNT(AUTO) 4.44 MIL/uL (4.5-6.0); WHITE BLOOD COUNT (AUTO) 6.1 K/uL (4.3-11.0)
--- NOTE | 2019-09-12 08:00 | NUR ---
rn notes received patient in the bed a/o x3/4 med/surge. patient has no acute respiratory distress, v/s stable, refused pain, infusing ns at 75 ml/hr on right FA intact. patient has cellulitis, with abscess wound on left lower leg. Dressing changes, administered scheduled medication, and started vancomycin 125 ml/hr . Patient ambulatory using walker. call light within to reach, tolerated breakfast well. continued monitoring.
[2019-09-12 08:02] LABS: CALCIUM, SERUM 9.2 mg/dL (8.5-10.1); CREATININE 0.8 mg/dL (0.6-1.3); PHOSPHORUS 3.3 mg/dL (2.5-4.9); POTASSIUM 4.2 mmol/L (3.5-5.1)
[2019-09-12] MEDS: GABAPENTIN 300 MG CAPSULE PO SCH ×2 (08:47→14:37)
--- NOTE | 2019-09-12 12:00 | NUR ---
RN NOTES PATIENT REFUSED CATAPRES 0.1 MG PO AT THIS TIME. PATIENT STATE "MY BP IS NORMAL".
[2019-09-12] MEDS ORDERED: CEPH-570 PO (15:27)
[2019-09-12 16:01] VITALS: BP 135/88
--- NOTE | 2019-09-12 16:05 | NUR ---
EXTRUDER OPERATOR NOTES PATIENT DISCHARGE AT THIS TIME GOING HOME SELF CARE. PATIENT STABLE, REFUSED PAIN, V/S WNL. MED RECONCILIATION AND DISCHARGE ORDER REVIEWED AND EXPLAINED TO THE PATIENT. PATIENT VERBALIZED UNDERSTANDING . BELONGING WITH THE PATIENT, PRESCRIPTION HANDED TO THE PATIENT.PATIENT REFUSED PICTURE TO BE TAKEN. PATIENT WILL FOLLOW PCP, AND TAKE MEDICATION PRESCRIBED. ESCORTED PATIENT TO THE LOBBY FOR SAFETY, DRESSING SUPPLY X1 ALSO GIVEN.
== END 2019-09-12 16:15 | disposition home or self-care (01) | DRG 383 ==
LOC: ER 20:17 → MEDSG2 23:53
PROVIDERS: ADMIT Nurse Practitioner Acute Care; ATTEND Student in an Organized Health Care Education/Training Program
DX: L03.116 Cellulitis of left lower limb (principal); L02.416 Cutaneous abscess of left lower limb; Z59.0 Homelessness; F43.10 Post-traumatic stress disorder, unspecified; I10 Essential (primary) hypertension; F11.10 Opioid abuse, uncomplicated; F10.10 Alcohol abuse, uncomplicated; Z72.0 Tobacco use; Y90.9 Presence of alcohol in blood, level not specified; E87.1 Hypo-osmolality and hyponatremia; D64.9 Anemia, unspecified; S46.902A Unspecified injury of unspecified muscle, fascia and tendon at shoulder and upper arm level, left arm, initial encounter; S46.901A Unspecified injury of unspecified muscle, fascia and tendon at shoulder and upper arm level, right arm, initial encounter; X58.XXXA Exposure to other specified factors, initial encounter; Y92.009 Unspecified place in unspecified non-institutional (private) residence as the place of occurrence of the external cause
CPT/HCPCS: 36415; 71045-TC; 80048-TC; 80061-TC; 80076-TC; 80202-TC; 83605-TC; 83735-TC; 84100-TC; 84484-TC; 85025-TC; 85730-TC; 87040-TC; 87070-TC; 87081-TC; 90715; 93307-TC; 93971-TC; 97116-TC; 97530-TC; A6403; A6407; G0378; J1650; J2270; J2543; J3370; J3490; J7030; J7060

== ENCOUNTER 2019-09-14 04:36 | Emergency (ER) | payer MEDICAID ==
[~2019-09-14] VITALS: Ht 165.1 cm; Wt 63.5 kg
[~2019-09-14 04:36] MED LIST: CEPH-570 PO
--- NOTE | 2019-09-14 04:47 | NUR ---
Patient came to ER bed 4 c/o generalized abdominal pain, diarrhea, and nausea since 1x hour ago BLANKET BINDER. Patient states he had a burrito that has been "left out for too long". Patient admits to using intravenous methamphetamines yesterday. AAOx4. No SOB. Breathing evenly and unlabored on room air. Connected to monitor.
[2019-09-14] MEDS ORDERED: ONDANSETRON HCL/PF 4 MG/2 ML VIAL ONE (05:27)
[2019-09-14] MEDS ORDERED: IV NS 0.9% 1,000 ML BAG IV ONE (05:30)
[2019-09-14] MEDS ORDERED: ONDANSETRON HCL/PF 4 MG/2 ML VIAL IVP ONE (05:30)
[2019-09-14] MEDS ORDERED: ACETAMINOPHEN ES 500 MG TABLET ONE (05:36)
[2019-09-14 05:40] LABS: BASOPHILS # (AUTO) 0.1 /CMM (0.0-0.2); BASOPHILS % (AUTO) 1.2 % (0.0-2.0); EOSINOPHILS % (AUTO) 1.8 % (0.0-6.0); HEMATOCRIT 40 % (39-51); HEMOGLOBIN 13.3 g/dL (13.5-17.5); LYMPHOCYTES # (AUTO) 1.7 /CMM (0.8-4.8); LYMPHOCYTES % (AUTO) 19.7 % (20.0-44.0); MEAN CORPUSCULAR HGB CONC 33 g/dl (31.0-36.0); MEAN CORPUSCULAR VOLUME 88 fL (80-96); MONOCYTES # (AUTO) 0.6 /CMM (0.1-1.30); MONOCYTES % (AUTO) 7.2 % (2.0-12.0); NEUTROPHILS # (AUTO) 6.2 /CMM (1.8-8.9); NEUTROPHILS % (AUTO) 70.1 % (43.0-81.0); PLATELET COUNT (AUTO) 437 /CMM (150-450); RED BLOOD CELL COUNT(AUTO) 4.52 MIL/uL (4.5-6.0); WHITE BLOOD COUNT (AUTO) 8.8 K/uL (4.3-11.0)
--- NOTE | 2019-09-14 05:49 | NUR ---
URINE COLLECTED AND SENT TO THE LAB.
[2019-09-14 06:00] LABS: ALBUMIN 3.7 g/dL (3.4-5.0); BILIRUBIN,DIRECT 0.1 mg/dL (0.0-0.2); BILIRUBIN,TOTAL 0.3 mg/dL (0.2-1.0); CALCIUM, SERUM 9.7 mg/dL (8.5-10.1); CREATININE 0.8 mg/dL (0.6-1.3); POTASSIUM 4.8 mmol/L (3.5-5.1); TOTAL PROTEIN, SERUM 8.9 g/dL (6.4-8.2)
[2019-09-14] MEDS ORDERED: ACETAMINOPHEN ES 500 MG TABLET PO ONE (06:00)
--- NOTE | 2019-09-14 06:09 | NUR ---
MD ZIEGLER AT BEDSIDE FOR EVALUATION.
[2019-09-14 07:22] VITALS: BP 132/77
--- NOTE | 2019-09-14 07:22 | NUR ---
IV removed. Catheter intact and site benign. Pressure and 4x4 applied to site. No bleeding noted.
--- NOTE | 2019-09-14 07:22 | NUR ---
Patient discharged to home in stable condition. Written and verbal after care instructions given. Patient verbalizes understanding of instruction.
== END 2019-09-14 07:23 | disposition home or self-care (01) ==
LOC: ER 04:39
DX: R51 Headache (principal); R10.84 Generalized abdominal pain; R11.10 Vomiting, unspecified; I10 Essential (primary) hypertension; F43.10 Post-traumatic stress disorder, unspecified; Z59.0 Homelessness; Z79.899 Other long term (current) drug therapy
CPT/HCPCS: 36415; 80048; 80076; 83690; 85025; 96361; 96374; 99283; J2405; J7030

== ENCOUNTER 2019-11-09 21:52 | Emergency (ER) | payer MEDICAID ==
[~2019-11-09] VITALS: Ht 165.1 cm; Wt 63.5 kg
[2019-11-09] MEDS ORDERED: TDAP [DIPH/PERTUSSIS/TET] 0.5 ML VIAL IM ONE ×2 (22:45→23:00)
[2019-11-09] MEDS ORDERED: SULFAMETH/TRIMETH 800/160 MG 1 UDTAB TABLET ONE (22:45)
[2019-11-09] MEDS ORDERED: CEPHALEXIN MONOHYDRATE 500 MG CAPSULE PO ONE ×2 (22:46→23:00)
[2019-11-09] MEDS ORDERED: LIDOCAINE 1%-EPI 1:100,000 20 ML VIAL ONE (22:46)
[2019-11-09] MEDS ORDERED: IBUPROFEN 600 MG TABLET ONE (22:46)
[2019-11-09] MEDS ORDERED: LIDOCAINE 1%-EPI 1:100,000 20 ML VIAL TP ONE (23:00)
[2019-11-09] MEDS ORDERED: SULFAMETH/TRIMETH 800/160 MG 1 UDTAB TABLET PO ONE (23:00)
[2019-11-09] MEDS ORDERED: IBUPROFEN 600 MG TABLET PO ONE (23:00)
[2019-11-09 23:29] VITALS: BP 133/88
--- NOTE | 2019-11-09 23:29 | NUR ---
Patient discharged to home in stable condition. Written and verbal after care instructions given. Patient verbalizes understanding of instruction. Pt ambulatory with a steady gait. Homeless waiver signed by the patient
== END 2019-11-09 23:32 | disposition home or self-care (01) ==
LOC: ER 21:57
DX: L02.414 Cutaneous abscess of left upper limb (principal); F11.10 Opioid abuse, uncomplicated; I10 Essential (primary) hypertension; Z79.899 Other long term (current) drug therapy; Z59.0 Homelessness
CPT/HCPCS: 10060; 99284; A6403; A6407; J3490; 90715

== ENCOUNTER 2020-03-08 06:00 | Emergency (ER) | payer MEDICAID, OTHER ==
[~2020-03-08] VITALS: Ht 167.6 cm; Wt 63.5 kg
[2020-03-08 06:03] VITALS: BP 127/81
--- NOTE | 2020-03-08 09:34 | NUR ---
PROVIDED FOOD. CALLED INTERNAL MEDICINE PHYSICIAN ASSISTANT FOR CLOTHES AND SHOES.
--- NOTE | 2020-03-08 11:05 | NUR ---
Patient given written and verbal discharge instructions. Patient verbalizes understanding of instructions. Patient is ambulatory with steady gait. Refuses offer of long-term placement. Patient given list of available shelters in surrounding area.
--- NOTE | 2020-03-08 11:17 | NUR ---
Heavy Line Technician consult: SEDRICK consult requested by ER staff for a 34 year old male for homelessness. SW met with pt at ER bed 18 and conducted an assessment. Pt made poor eye contact during the assessment. Pt. alert and oriented x4 ( time, place, self, and situation). Pt appears to be in an anxious mood with distressed affect. Pt.'s speech is within normal limits. Patient states he is seeking medical attention for jensen. Pt. requested clothes and shoes to wear and he will be discharged to self. Pt. denies suicidal and homicidal ideation. Pt denies any visual or auditory hallucinations as well. Pt. stated he has no Hx. mental health & no psychotropic medications. Pt. stated has a history of substance abuse (methamphetamine and heroin) but denies of being in any substance at this time. Pt. also states he has used substances for quite sometime. Pt. appear ungroomed (dirty and long nails), malodorous, and had inappropriate to no clothing. Pt. appears to be ambulatory with a steady gait. Pt stated he is experiencing homelessness and has no other additional support system. SEDRICK provided homeless resources which included shelters, showers, food coyne, meals, health clinics, mental health clinics, and substance abuse referrals. Pt. was receptive to resources. SEDRICK provided the [phone] [facility] Program list. SEDRICK referred pt. to assisted [facility] [address] [place] [id number] as nearest location. Homeless resources also include Mental health and health clinics include [facility] [address] [place] [address] ([phone]). [facility] [address] [place] [address] ([phone]); Medical clinics: [facility] [address] [facility], [place], [place]. ([phone]); [facility] [address] [facility], [address], [place]. SEDRICK provided the pt with a brief substance abuse intervention with referrals to substance abuse programs; [facility] Substance Abuse Self-help line ([phone]); [facility] [address] [place] [address] ([phone]); [facility] [address] [place] [address] ([phone]); [facility] ([phone]; [facility] ([phone]); [facility] ([phone]); [facility] ([phone]). Pt. was given the proper resources needed to find assisted placement but denies services. Pt. was also given clothing (pants, shoes, jacket, and shirt) as requested by the pt. SW had pt. sign the homeless waiver form & it was filed in pt.'s chart. Plan: Pt. was given the appropriate resources to find assisted placement as well as proper clothing requested by the patient. Pt will be transported by his own means of transport.
== END 2020-03-08 11:07 | disposition home or self-care (01) ==
LOC: ER 06:02
DX: T23.201D Burn of second degree of right hand, unspecified site, subsequent encounter (principal); T23.202D Burn of second degree of left hand, unspecified site, subsequent encounter; T24.201D Burn of second degree of unspecified site of right lower limb, except ankle and foot, subsequent encounter; T24.202D Burn of second degree of unspecified site of left lower limb, except ankle and foot, subsequent encounter; T21.24XD Burn of second degree of lower back, subsequent encounter; I10 Essential (primary) hypertension; Z98.890 Other specified postprocedural states; Z59.0 Homelessness; Z79.899 Other long term (current) drug therapy; Z48.01 Encounter for change or removal of surgical wound dressing; X08.8XXD Exposure to other specified smoke, fire and flames, subsequent encounter

== ENCOUNTER 2020-06-30 04:44 | Emergency (ER) | payer OTHER ==
[~2020-06-30] VITALS: Ht 167.6 cm; Wt 63.5 kg
[2020-06-30 04:47] VITALS: BP 142/80
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
--- NOTE | 2020-06-30 05:04 | NUR ---
Patient discharged to home in stable condition. Written and verbal after care instructions given. Patient verbalizes understanding of instruction.
== END 2020-06-30 05:04 | disposition home or self-care (01) ==
LOC: ER 04:46
DX: M79.662 Pain in left lower leg (principal); F11.20 Opioid dependence, uncomplicated; F43.10 Post-traumatic stress disorder, unspecified; F31.9 Bipolar disorder, unspecified; F20.9 Schizophrenia, unspecified; I10 Essential (primary) hypertension; F17.200 Nicotine dependence, unspecified, uncomplicated; Z98.890 Other specified postprocedural states; Z59.0 Homelessness

== ENCOUNTER 2020-07-09 13:25 | Emergency (ER) | payer OTHER ==
[~2020-07-09] VITALS: Ht 165.1 cm; Wt 56.7 kg
--- NOTE | 2020-07-09 13:44 | NUR ---
SHEMAR FROM [employer] OD. AAOX4 BG 136. DENIES PAIN. IN ROOM AIR AND DENIES SOB. RESPIRATION REGULAR AND UNLABORED. WILL CONTINUE TO MONITOR THE PATIENT.
--- NOTE | 2020-07-09 14:30 | NUR ---
pt wants to leave able to walk
--- NOTE | 2020-07-09 14:30 | NUR ---
PT. VERBALIZED UNDERSTANDING OF AFTERCARE INSTRUCTIONS.
[2020-07-09 14:31] VITALS: BP 136/78
--- NOTE | 2020-07-09 14:32 | NUR ---
Patient alert and orieneted x4. Patient discharged to home in stable condition. Written and verbal after care instructions given. Patient verbalizes understanding of instruction.
== END 2020-07-09 14:32 | disposition home or self-care (01) ==
LOC: ER 13:28
DX: T40.1X1A Poisoning by heroin, accidental (unintentional), initial encounter (principal); I10 Essential (primary) hypertension; F43.10 Post-traumatic stress disorder, unspecified; F20.9 Schizophrenia, unspecified; F31.9 Bipolar disorder, unspecified; F17.200 Nicotine dependence, unspecified, uncomplicated; Z98.890 Other specified postprocedural states; Z59.0 Homelessness; Y92.89 Other specified places as the place of occurrence of the external cause

== ENCOUNTER 2020-08-09 20:48 | Inpatient (IN) | payer OTHER ==
[~2020-08-09] VITALS: Ht 165.1 cm; Wt 60.8 kg
[2020-08-09] MEDS ORDERED: HALOPERIDOL LACTATE INJ 5 MG/ML VIAL ONE (21:28)
[2020-08-09] MEDS ORDERED: diphenhydrAMINE HCL 50 MG/ML VIAL ONE (21:28)
[2020-08-09] MEDS ORDERED: LORAZEPAM INJ 2 MG/ML VIAL ONE (21:29)
[2020-08-09] MEDS ORDERED: LORAZEPAM INJ 2 MG/ML VIAL IM ONE (21:30)
[2020-08-09] MEDS ORDERED: HALOPERIDOL LACTATE INJ 5 MG/ML VIAL IM ONE (21:30)
[2020-08-09] MEDS ORDERED: diphenhydrAMINE HCL 50 MG/ML VIAL IM ONE (21:30)
[2020-08-09 21:33] LABS: BILIRUBIN,URINE SMALL (NEGATIVE); COLOR,URINE YELLOW (YELLOW); LEUKOCYTE ESTERASE ,URINE Negative (NEGATIVE); NITRITE, URINE Negative (NEGATIVE); PH,URINE 7.5 (5.0-8.0); PROTEIN,URINE 30 mg/dl (NEGATIVE); UGLUCOSE Negative (NEGATIVE)
[2020-08-09 21:58] LABS: BACTERIA,URINE Rare /HPF (None Seen); RBC,URINE NONE SEEN /HPF (0-2); SQUAMOUS EPITHELIAL CELL,UR Few /HPF (None Seen); WBC,URINE NONE SEEN /HPF (0-3)
[2020-08-09 22:04] LABS: BASOPHILS # (AUTO) 0.1 /CMM (0.0-0.2); BASOPHILS % (AUTO) 1.4 % (0.0-2.0); EOSINOPHILS % (AUTO) 1.7 % (0.0-6.0); HEMATOCRIT 22 % (39-51); LYMPHOCYTES # (AUTO) 1.2 /CMM (0.8-4.8); LYMPHOCYTES % (AUTO) 15.5 % (20.0-44.0); MEAN CORPUSCULAR HGB CONC 30 g/dl (31.0-36.0); MEAN CORPUSCULAR VOLUME 69 fL (80-96); MONOCYTES # (AUTO) 0.9 /CMM (0.1-1.30); MONOCYTES % (AUTO) 11.1 % (2.0-12.0); NEUTROPHILS # (AUTO) 5.5 /CMM (1.8-8.9); NEUTROPHILS % (AUTO) 70.3 % (43.0-81.0); PLATELET COUNT (AUTO) 717 /CMM (150-450); WHITE BLOOD COUNT (AUTO) 7.8 K/uL (4.3-11.0)
[2020-08-09 22:09] LABS: HEMOGLOBIN 6.7 g/dL (13.5-17.5)
[2020-08-09 22:10] LABS: CALCIUM, SERUM 7.8 mg/dL (8.5-10.1); CARBON DIOXIDE 28 mmol/L (21-32); CHLORIDE 103 mmol/L (98-107); CREATININE 0.8 mg/dL (0.6-1.3); GLUCOSE 95 mg/dL (74-106); POTASSIUM 3.6 mmol/L (3.5-5.1); SODIUM SERUM 138 mmol/L (136-145); UREA NITROGEN, BLOOD 14 mg/dL (7-18)
[2020-08-09 22:17] LABS: ACETAMINOPHEN < 2 ug/ml (10-30); ALANINE AMINOTRANSFERASE 12 U/L (12-78); ALBUMIN 2.1 g/dL (3.4-5.0); ALCOHOL, BLOOD < 3 mg/dL (0-0); ALKALINE PHOSPHATASE 84 U/L (46-116); ASPARTATE AMINOTRANSFERASE 13 U/L (15-37); BILIRUBIN,DIRECT 0.1 mg/dL (0.0-0.2); BILIRUBIN,TOTAL 0.1 mg/dL (0.2-1.0); TOTAL PROTEIN, SERUM 7.7 g/dL (6.4-8.2)
[2020-08-09 23:17] LABS: OCCULT BLOOD STOOL NEGATIVE (NEGATIVE)
[2020-08-10] VITALS (11 sets, daily range): BP systolic 125–146; BP diastolic 68–77
[2020-08-10] MEDS ORDERED: MAGNESIUM HYDROXIDE 30 ML UDC PO PRN
[2020-08-10] MEDS ORDERED: ACETAMINOPHEN 325 MG TABLET PO PRN
[2020-08-10] MEDS ORDERED: ONDANSETRON HCL/PF 4 MG/2 ML VIAL IVP PRN
[2020-08-10] MEDS ORDERED: Z GUARD REMEDY 2 OZ OINT TP PRN
[2020-08-10] MEDS ORDERED: MAG HYDROX/AL HYDROX/SIMETH 30 ML UDC PO PRN
[2020-08-10 00:31] LABS: BASOPHILS % (MANUAL) 0 % (0.0-2.0); EOSINOPHILS % (MANUAL) 1 % (0-4); LYMPHOCYTES % (MANUAL) 9 % (16-48); MONOCYTES % (MANUAL) 10 % (0-11.0); NEUTROPHILS % (MANUAL) 80 (42-76)
[2020-08-10] MEDS ORDERED: ACETAMINOPHEN 650 MG/SUPP.RECT RC PRN (03:30)
[2020-08-10 07:41] LABS: CALCIUM, SERUM 8.2 mg/dL (8.5-10.1); CREATININE 0.8 mg/dL (0.6-1.3); PHOSPHORUS 3.1 mg/dL (2.5-4.9); POTASSIUM 3.9 mmol/L (3.5-5.1)
[2020-08-10 07:46] LABS: BASOPHILS # (AUTO) 0.1 /CMM (0.0-0.2); BASOPHILS % (AUTO) 1.2 % (0.0-2.0); EOSINOPHILS % (AUTO) 1.1 % (0.0-6.0); HEMATOCRIT 24 % (39-51); HEMOGLOBIN 7.8 g/dL (13.5-17.5); LYMPHOCYTES # (AUTO) 1.6 /CMM (0.8-4.8); MEAN CORPUSCULAR HGB CONC 32 g/dl (31.0-36.0); MEAN CORPUSCULAR VOLUME 71 fL (80-96); MONOCYTES # (AUTO) 1.1 /CMM (0.1-1.30); MONOCYTES % (AUTO) 10.8 % (2.0-12.0); NEUTROPHILS # (AUTO) 6.9 /CMM (1.8-8.9); NEUTROPHILS % (AUTO) 70.9 % (43.0-81.0); PLATELET COUNT (AUTO) 722 /CMM (150-450); WHITE BLOOD COUNT (AUTO) 9.7 K/uL (4.3-11.0)
[2020-08-10] MEDS: CEPHALEXIN MONOHYDRATE 500 MG CAPSULE PO SCH ×2 (09:27→16:25)
[2020-08-11 05:00] VITALS: BP 117/71
[2020-08-11] MEDS: CEPHALEXIN MONOHYDRATE 500 MG CAPSULE PO SCH ×2 (09:07→17:27)
[2020-08-11 13:00] VITALS: BP 119/74
[2020-08-11 14:15] LABS: LYMPHOCYTES # (AUTO) 1.8 /CMM (0.8-4.8); NEUTROPHILS # (AUTO) 6.3 /CMM (1.8-8.9)
[2020-08-11 14:22] LABS: BASOPHILS % (AUTO) 0.4 % (0.0-2.0); EOSINOPHILS % (AUTO) 2.1 % (0.0-6.0); HEMATOCRIT 31 % (39-51); HEMOGLOBIN 9.7 g/dL (13.5-17.5); LYMPHOCYTES % (AUTO) 19.4 % (20.0-44.0); MEAN CORPUSCULAR HGB CONC 31 g/dl (31.0-36.0); MEAN CORPUSCULAR VOLUME 72 fL (80-96); MONOCYTES # (AUTO) 0.8 /CMM (0.1-1.30); MONOCYTES % (AUTO) 8.7 % (2.0-12.0); NEUTROPHILS % (AUTO) 69.4 % (43.0-81.0); PLATELET COUNT (AUTO) 805 /CMM (150-450); RED BLOOD CELL COUNT(AUTO) 4.36 MIL/uL (4.5-6.0); WHITE BLOOD COUNT (AUTO) 9.1 K/uL (4.3-11.0)
[2020-08-11 15:14] LABS: EOSINOPHILS % (MANUAL) 2 % (0-4); LYMPHOCYTES % (MANUAL) 18 % (16-48); MONOCYTES % (MANUAL) 7 % (0-11.0); NEUTROPHILS % (MANUAL) 73 (42-76)
[2020-08-11 20:00] VITALS: BP 146/90
[2020-08-11] MEDS: HYDROCODONE/APAP 5/325MG TABLET PO PRN (20:11)
[2020-08-11] MEDS: ZOLPIDEM TARTRATE 5 MG TABLET PO PRN (23:09)
[2020-08-12] MEDS: HYDROCODONE/APAP 5/325MG TABLET PO PRN ×2 (00:30→10:23)
[2020-08-12 08:00] VITALS: BP 140/87
[2020-08-12] MEDS: CEPHALEXIN MONOHYDRATE 500 MG CAPSULE PO SCH ×2 (10:23→19:02)
[2020-08-12 16:00] VITALS: BP 143/89
[2020-08-12 19:45] VITALS: BP 145/88
[2020-08-12] MEDS: ZOLPIDEM TARTRATE 5 MG TABLET PO PRN (20:39)
[2020-08-13] MEDS: CEPHALEXIN MONOHYDRATE 500 MG CAPSULE PO SCH ×2 (08:32→16:21)
[2020-08-14] MEDS: CEPHALEXIN MONOHYDRATE 500 MG CAPSULE PO SCH ×2 (08:50→16:10)
[2020-08-14 10:37] VITALS: BP 140/82
[2020-08-14] MEDS ORDERED: CEPH500C2 PO (13:23)
[2020-08-14 16:30] VITALS: BP 146/97
== END 2020-08-14 18:00 | disposition home or self-care (01) | DRG 663 ==
LOC: ER 20:53 → TELE1 23:56 → MEDSG1 08-10 01:27 → MED 08-11 13:04
PROVIDERS: ADMIT Nurse Practitioner Acute Care; ATTEND Nurse Practitioner Acute Care
PROC: 30233N1 Transfusion of Nonautologous Red Blood Cells into Peripheral Vein, Percutaneous Approach (ICD-10-PCS; principal; 2020-08-09)
DX: D50.9 Iron deficiency anemia, unspecified (principal); E43 Unspecified severe protein-calorie malnutrition; R45.851 Suicidal ideations; F20.9 Schizophrenia, unspecified; I10 Essential (primary) hypertension; Z20.822 Contact with and (suspected) exposure to COVID-19; Z59.0 Homelessness; F17.210 Nicotine dependence, cigarettes, uncomplicated; F43.10 Post-traumatic stress disorder, unspecified; F31.9 Bipolar disorder, unspecified; E83.52 Hypercalcemia; Z98.890 Other specified postprocedural states; D47.3 Essential (hemorrhagic) thrombocythemia; Z87.820 Personal history of traumatic brain injury; T30.0 Burn of unspecified body region, unspecified degree; X08.8XXS Exposure to other specified smoke, fire and flames, sequela
CPT/HCPCS: 36415; 71045-TC; 80048-TC; 80061-TC; 80076-TC; 81001; 82272-TC; 83735-TC; 84100-TC; 85025-TC; 85730-TC; 86850-TC; 87081-TC; 97116-TC; 97530-TC; A6253; C9803; G0378; G0480; J1200; J1630; J2060; J7050; P9016

== ENCOUNTER 2021-07-05 16:20 | Emergency (ER) | payer OTHER ==
[~2021-07-05] VITALS: Ht 160 cm; Wt 59.0 kg
[~2021-07-05 16:20] MED LIST changes: -CEPH-570 PO; +CEPH500C2 PO
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
[2021-07-05] MEDS ORDERED: SILVER SULFADIAZINE CREAM 25 GM TUBE ONE (16:41)
[2021-07-05] MEDS ORDERED: SILVER SULFADIAZINE 50 GM JAR TP PRN (17:00)
[2021-07-05] MEDS ORDERED: SILV20CR13 TP (17:38)
[2021-07-05] MEDS ORDERED: CLIN300C12 PO (17:39)
[2021-07-05 18:15] VITALS: BP 119/71
--- NOTE | 2021-07-05 18:15 | NUR ---
Patient given written and verbal discharge instructions. Patient verbalizes understanding of instructions. Patient is ambulatory with steady gait. Refuses offer of [facility] placement. Patient given list of available shelters in surrounding area.
== END 2021-07-05 18:15 | disposition home or self-care (01) ==
LOC: ER 16:24
DX: T24.002A Burn of unspecified degree of unspecified site of left lower limb, except ankle and foot, initial encounter (principal); T24.001A Burn of unspecified degree of unspecified site of right lower limb, except ankle and foot, initial encounter; T79.9XXA Unspecified early complication of trauma, initial encounter; Z48.00 Encounter for change or removal of nonsurgical wound dressing; I10 Essential (primary) hypertension; F31.9 Bipolar disorder, unspecified; F20.9 Schizophrenia, unspecified; F17.200 Nicotine dependence, unspecified, uncomplicated; Z59.00 Homelessness unspecified; Z79.899 Other long term (current) drug therapy
CPT/HCPCS: 99283; A6403